=== PATIENT | female | born 1990 | race African-American/Black ===

== ENCOUNTER 2018-07-29 12:25 | Observation (INO) | payer MEDICAID ==
[2018-07-29 14:25] LABS: Amphetamine Screen, Urine NEGATIVE (NEGATIVE); Barbiturate Scree,Urine NEGATIVE (NEGATIVE); Benzodiazephine Screen, Urine NEGATIVE (NEGATIVE); Cocaine Screen, Urine NEGATIVE (NEGATIVE); Opiate Scree,Urine NEGATIVE (NEGATIVE); Phencyclidine Screen, Urine NEGATIVE (NEGATIVE)
[2018-07-29] MEDS ORDERED: PREN-96 PO (14:39)
[2018-07-29 14:52] LABS: Cannabinoid Screen, Urine POSITIVE (NEGATIVE)
[2018-07-29 14:55] LABS: Urine Bacteria FEW /hpf (None Seen); Urine Blood Negative /uL (Negative); Urine Mucus FEW (None Seen); Urine Specific Gravity 1.032 (1.001-1.035); Urine WBC 22 /hpf (0 - 5)
== END 2018-07-29 13:45 | disposition left against medical advice (07) | DRG 566 ==
LOC: LDRP 12:25 → UNDODISOB 13:45
PROVIDERS: ADMIT Obstetrics & Gynecology; ATTEND Obstetrics & Gynecology
DX: O42.913 Preterm premature rupture of membranes, unspecified as to length of time between rupture and onset of labor, third trimester (principal); Z3A.37 37 weeks gestation of pregnancy
CPT/HCPCS: 59025; 80307; 81001; 81002; G0378